=== PATIENT | female | born 1960 | race Caucasian/White ===

== ENCOUNTER 2023-05-01 05:43 | Inpatient (IN) ==
--- NOTE | 2023-03-30 12:12 | PAT Medication Instructions ---
Medication Instructions Date of Service March 30, 2023 Home Medications Medication Instructions Recorded Aspirin (Aspirin EC Low Dose) 81 mg PO BID 30 days ##60 02/17/16 Medication List: BIOTIN 10 mg PO QAM BLACK COHOSH (CIMICIFUGA RACEM (BLACK COHOSH) 40 mg PO BID CYCLOBENZAPRINE HCL (FLEXERIL) 5 mg PO HS DULOXETINE HCL (CYMBALTA) 60 mg PO HS Pantoprazole (Protonix) 40 mg PO DAILYBL Aspirin (Aspirin EC Low Dose) 81 mg PO BID Acetaminophen (Tylenol Extra Strength) 1,000 mg PO Q8 PRN Pain buspirone 5 mg tablet 5 mg PO TID folic acid 1 mg tablet 1 mg PO QAM hydroxychloroquine 200 mg tablet 400 mg PO QAM magnesium 250 mg tablet 250 mg PO QAM methotrexate sodium 2.5 mg tablet 17.5 mg PO WK omega 5-tuy-zop-fish oil 900 mg-1,400 mg capsule,delayed release 1 cap PO HS MEDICATION INSTRUCTIONS: Continue as directed Pantoprazole (Protonix) 40 mg PO DAILYBL ASK your prescriber and surgeon Aspirin (Aspirin EC Low Dose) 81 mg PO BID STOP taking 2 weeks before surgery omega 9-qvz-ihh-fish oil 900 mg-1,400 mg capsule,delayed release 1 cap PO HS BIOTIN 10 mg PO QAM BLACK COHOSH (CIMICIFUGA RACEM (BLACK COHOSH) 40 mg PO BID DO NOT take the morning of surgery folic acid 1 mg tablet 1 mg PO QAM magnesium 250 mg tablet 250 mg PO QAM Take morning of surgery With a small sip of water, OTHERWISE NOTHING TO EAT OR DRINK AFTER MIDNIGHT: buspirone 5 mg tablet 5 mg PO TID hydroxychloroquine 200 mg tablet 400 mg PO QAM Acetaminophen (Tylenol Extra Strength) 1,000 mg PO Q8 PRN Pain (if needed) Take evening before surgery buspirone 5 mg tablet 5 mg PO TID DULOXETINE HCL (CYMBALTA) 60 mg PO HS CYCLOBENZAPRINE HCL (FLEXERIL) 5 mg PO HS Acetaminophen (Tylenol Extra Strength) 1,000 mg PO Q8 PRN Pain (if needed) Other Notes STOP 7 DAYS PRIOR TO SURGERY: methotrexate sodium 2.5 mg tablet 17.5 mg PO WK If you have any questions please call us at [phone] or [phone] or [phone] or [phone]
--- NOTE | 2023-04-13 11:08 | Anesthesiology Consultation ---
Date of Service April 13, 2023 Assessment & Plan (1) Encounter for pre-operative examination: Chart Review Chart Review: Acceptable Risk for Surgery and Patient seen in Pre Admission Testing Per PAT appt on 04/13/23, no recent illness/disease exposures, illness related symptoms, or recent illness/disease positive tests. Will leave to surgeon's discretion if preop Covid testing needed Patient seen by PCP 03/29/23= Patient seen for preop evaluation. "Clinically stable for surgery based on today's exam with caution regarding elevated BP (No preoperative testing available for review today). Revised Cardiac Risk Index for Pre Operative Risk- 0 points. Class I risk. 3.9% 30 day risk of , SD or cardiac arrest." Teaching & Discussion Pre-Anesthesia Teaching/Discussion Notes: Instructed NPO after midnight before surgery,except medications with 15 cc of water. Medication instructions provided according to the PAT guidelines. History Surgery Operation Date: 04/27/23 07:45 Proposed Procedures p L4-5 Decompression Fusion Spinal Cord Monitoring - Franklin Sharpe DO Height/Weight Height: 5 ft Weight: 85.2 kg Allergies Allergy/AdvReac Type Severity Reaction Status Date / Time No Known Allergies Allergy Unverified 03/30/23 11:53 Medications Home Medications Medication Instructions Recorded Confirmed Last Taken BIOTIN 10 mg PO QAM ##0 01/17/16 03/30/23 Unknown BLACK COHOSH (CIMICIFUGA RACEM 40 mg PO BID ##0 01/17/16 03/30/23 Unknown (BLACK COHOSH) CYCLOBENZAPRINE HCL (FLEXERIL) 5 mg PO HS #0 tabs 01/17/16 03/30/23 Unknown DULOXETINE HCL (CYMBALTA) 60 mg PO HS #0 caps 01/17/16 03/30/23 Unknown Pantoprazole (Protonix) 40 mg PO DAILYBL #30 tabs 01/17/16 03/30/23 Unknown Aspirin (Aspirin EC Low Dose) 81 mg PO BID 30 days ##60 02/17/16 03/30/23 Unknown Acetaminophen (Tylenol Extra 1,000 mg PO Q8 PRN Pain 03/30/23 03/30/23 Unknown Strength) buspirone 5 mg tablet 5 mg PO TID 03/30/23 03/30/23 Unknown folic acid 1 mg tablet 1 mg PO QAM 03/30/23 03/30/23 Unknown hydroxychloroquine 200 mg tablet 400 mg PO QAM 03/30/23 03/30/23 Unknown magnesium 250 mg tablet 250 mg PO QAM 03/30/23 03/30/23 Unknown methotrexate sodium 2.5 mg tablet 17.5 mg PO WK 03/30/23 03/30/23 Unknown omega 2-zju-bir-fish oil 900 1 cap PO HS 03/30/23 03/30/23 Unknown mg-1,400 mg capsule,delayed release Past Medical History Medical History Impaired fasting blood sugar Obesity Fibromyalgia Chronic low back pain Osteoarthritis Rheumatoid arthritis on MTX and plaquenil; follows with Rheumatology Hyperlipidemia taking fish oil GERD (gastroesophageal reflux disease) Well controlled and stable Exercise / Class Metabolic Activity III < 4 Walking/Shop/Light housework (one flight of stairs- no chest pain, mild SOB ) Past Surgical History Surgical History History of total right knee replacement History of hemorrhoidectomy Hx of appendectomy Hx of esophagogastroduodenoscopy History of colonoscopy H/O bilateral breast reduction surgery Hx of cholecystectomy Past Anesthesia History No Hx of Anesthesia Complications and No Family Hx of Anesthesia Complications History of PONV No Hx of PONV and No Hx of Motion Sickness Social History Smoking Status: Never smoker Do You Dip or Chew Tobacco: No Hx Alcohol Use: Yes Alcohol type: wine and hard liquor alcohol intake frequency: a few times a month Hx Substance Use: No Review of Systems - Mild chronic DOWLING (chronic, mild and stable)- feels due to deconditioning due to limited activity from back pain - Hx of snoring- hx of sleep study "many years ago"- no EVERETT at that time Patient denies chest pain, shortness of breath, cough, wheezing, palpitations. No hx of seizures, stroke, SD. No hx of blood clots or blood transfusions Physical Exam Vital Signs VITALS BP 162/82 P 69 TEMP 98.2 SP02 95% RESP 16 Constitutional no acute distress ENMT Mouth: no TMJ clicking Thyromental Distance: > or= 3.5 Finger Breadths (3.5) Mallampati Class: II Full dentures on top and bottom Neck + limited neck extension (significant (see 04/13/23 c-spine x ray)) Respiratory normal respiratory effort; no respiratory distress Auscultation: lungs clear to auscultation bilaterally; no wheezes Cardiovascular Rate/Rhythm: regular rate and regular rhythm Heart Sounds: no murmur Vessels: no carotid bruit Musculoskeletal Spine: + pain with cervical ROM Extremities: extremities normal to inspection Psychiatric Orientation: alert Lab Results Anesthesia Preop Results Results Anesthesia Widget: WBC 6.43 K/ul (4.8-10.8) 04/13/23 Hgb 12.0 g/dl (12.0-16.0) 04/13/23 Hct 35.6 % (37.0-47.0) L 04/13/23 Plt 269 K/uL (130-400) 04/13/23 Na 139 mmol/L (136-145) 04/13/23 K 3.7 mmol/L (3.5-5.1) 04/13/23 Cl 106 mmol/L (98-107) 04/13/23 CO2 27 mmol/L (21-32) 04/13/23 BUN 14 mg/dl (6-23) 04/13/23 Creat 0.60 mg/dl (0.6-1.2) 04/13/23 Glucose Level 106 mg/dl (70-99(Fasting)) H 04/13/23 PT 11.0 Seconds (9.0-12.0) 04/13/23 PTT 28 Seconds (21-31) 04/13/23 INR 1.0 (0.9-1.1) 04/13/23 HA1c 6.1 % (4.5-5.6) H 04/13/23 Urine Color Yellow 04/13/23 Urine Appearance Clear (Clear) 04/13/23 Urine pH 5.5 (4.5-7.5) 04/13/23 Urine Specific [place] 1.024 (1.000-1.030) 04/13/23 Urine Protein Negative (Negative) 04/13/23 Urine Glucose (UA) Negative (Negative) 04/13/23 Urine Ketones Negative (Negative) 04/13/23 Urine Blood Negative (Negative) 04/13/23 Urine Nitrite Negative (Negative) 04/13/23 Urine Bilirubin Negative (Negative) 04/13/23 Urine Urobilinogen Negative (Negative) 04/13/23 Urine Leukocyte Esterase Negative (Negative) 04/13/23 Blood Type A Positive 04/13/23 Antibody Screen NEGATIVE 04/13/23 Testing Electrocardiogram Date: 04/13/23 Findings: + NSR @ (76bpm) Normal EKG per cardio Chest X-Ray Date: 04/13/23 Findings: + NAD FINDINGS: PA and lateral chest radiographs are compared to study dated 01/17/2016. The cardiomediastinal silhouette is unremarkable. The lungs and pleural spaces are clear. There is no pneumothorax. The bony thorax appears intact. Cholecystectomy clips are noted in the upper abdomen. Cervical Spine Date: 04/13/23 FINDINGS: The cervical spine is visualized from C1 through the superior endplate of T1. There is straightening of the cervical spine. There is 1 mm of jacki listhesis of C2 on C3. This is likely chronic. Prevertebral soft tissues and the C1-C2 interval are intact. No acute fractures identified. Moderate facet degenerative changes seen throughout the cervical spine. There is moderate disc space narrowing at C5-C6 and C6-C7 with endplate osteophytes. There is mild disc space narrowing at C4-C5. The lung apices are clear. IMPRESSION: 1. No fractures within the cervical spine. 2. There is 1 mm of anterolisthesis of C2 on C3. This is likely due to the long- standing degenerative change. 3. The C1-C2 interval is intact.
[~2023-05-01 05:43] MED LIST: ACETAMINOPHEN 500 MG TAB PO SCH; CeleBREX 200 MG CAP PO SCH; GABAPENTIN 600 MG DOSE PO SCH; LR 15ML/HR IV SCH; LR 60ML/HR IV SCH; ceFAZolin 2000MG 2,000 MG/15 ML SYR IV SCH
[2023-05-01] MEDS ORDERED: ceFAZolin 2000MG 2,000 MG/15 ML SYR IV SCH (06:00)
[2023-05-01] MEDS: GABAPENTIN 600 MG DOSE PO SCH ×5 (06:38→11:40)
[2023-05-01] MEDS: CeleBREX 200 MG CAP PO SCH ×5 (06:38→07:08)
[2023-05-01] MEDS: ACETAMINOPHEN 500 MG TAB PO SCH ×5 (06:38→11:40)
[2023-05-01] MEDS ORDERED: ceFAZolin 2,000 MG/15 ML IV PUSH IV ONE (06:42)
[2023-05-01] MEDS ORDERED: ONDANSETRON INJ 2 MG/ML 2 ML VIAL IV PRN ×2 (06:47→11:31)
[2023-05-01] MEDS ORDERED: PROMETHAZINE HCL 6.25 MG in SODIUM CHLORIDE 0.9% 50 ML IV PRN (06:47)
[2023-05-01] MEDS ORDERED: HYDROmorphone INJ 2 MG/ML SYR/VIAL IV PRN (06:47)
[2023-05-01] MEDS ORDERED: ATROPINE SULFATE 0.1 MG/ML 10ML SYR IV PRN (06:47)
[2023-05-01] MEDS ORDERED: ePHEDrine sulfate 50 MG/ML AMP IV PRN (06:47)
[2023-05-01] MEDS ORDERED: DEXAMETHASONE SOD INJ 4 MG/ML VIAL ONE (06:48)
[2023-05-01] MEDS ORDERED: HYDROmorphone INJ 2 MG/ML SYR/VIAL ONE (06:48)
[2023-05-01] MEDS ORDERED: MIDAZOLAM HCL 1 MG/ML 2ML VIAL ONE (06:48)
[2023-05-01] MEDS ORDERED: GLYCOPYRROLATE 0.2 MG/ML VIAL ONE (06:48)
[2023-05-01] MEDS ORDERED: PROPOFOL IV EMULSION 10 MG/ML 20 ML VIAL IV ONE (06:48)
[2023-05-01] MEDS ORDERED: SODIUM CHLORIDE 0.9% PF INJ 10 ML VIAL ONE (06:48)
[2023-05-01] MEDS ORDERED: LIDOCAINE 2% 2 ML VIAL/AMP(20MG/ML) INFIL ONE (06:48)
[2023-05-01] MEDS ORDERED: ONDANSETRON INJ 2 MG/ML 2 ML VIAL ONE (06:48)
[2023-05-01] MEDS ORDERED: ROCURONIUM BROMIDE 10 MG/ML 5 ML VIAL IV ONE (06:48)
[2023-05-01] MEDS ORDERED: LR 60ML/HR IV SCH (07:00)
[2023-05-01] MEDS ORDERED: LR 15ML/HR IV SCH (07:00)
[2023-05-01] MEDS ORDERED: BUPIVACAINE/EPINEPHRINE 0.5% MPF 1:200,000 30 ML VIAL ONE (07:02)
[2023-05-01] MEDS ORDERED: ceFAZolin 330 MG/ML 1 GM VIAL ONE (07:02)
--- NOTE | 2023-05-01 07:49 | History & Physical Bridge Note ---
Date of Service May 01, 2023 History & Physical Bridge Note I have examined the patient, reviewed the History & Physical and in the interval since the performance of the History & Physical I have noted the following changes of clinical significance: no changes noted
--- NOTE | 2023-05-01 07:50 | History & Physical Report ---
Date of Service May 01, 2023 Assessment & Plan (1) Neurogenic claudication due to lumbar spinal stenosis: Plan: L4-L5 decompression and fusion History of Present Illness Chief Complaint: Back and bilateral leg pain Primary Care Provider: Eyad Youssef MD This is a 62-year-old female who presents with chronic persistent back and leg pain after failing course of nonoperative care is here for surgical invention. Allergies Allergy/AdvReac Type Severity Reaction Status Date / Time No Known Allergies Allergy Verified 05/01/23 06:34 Home Medications Medication Instructions Recorded Confirmed Type BIOTIN 10 mg PO QAM ##0 01/17/16 05/01/23 History BLACK COHOSH (CIMICIFUGA RACEM 40 mg PO BID ##0 01/17/16 05/01/23 History (BLACK COHOSH) CYCLOBENZAPRINE HCL (FLEXERIL) 5 mg PO HS #0 tabs 01/17/16 05/01/23 History DULOXETINE HCL (CYMBALTA) 60 mg PO HS #0 caps 01/17/16 05/01/23 History Pantoprazole (Protonix) 40 mg PO DAILYBL #30 tabs 01/17/16 05/01/23 History Aspirin (Aspirin EC Low Dose) 81 mg PO BID 30 days ##60 02/17/16 05/01/23 Rx Acetaminophen (Tylenol Extra 1,000 mg PO Q8 PRN Pain 03/30/23 05/01/23 History Strength) buspirone 5 mg tablet 5 mg PO TID 03/30/23 05/01/23 History folic acid 1 mg tablet 1 mg PO QAM 03/30/23 05/01/23 History hydroxychloroquine 200 mg tablet 400 mg PO QAM 03/30/23 05/01/23 History magnesium 250 mg tablet 250 mg PO QAM 03/30/23 05/01/23 History methotrexate sodium 2.5 mg tablet 17.5 mg PO WK 03/30/23 05/01/23 History omega 1-ogk-cut-fish oil 900 1 cap PO HS 03/30/23 05/01/23 History mg-1,400 mg capsule,delayed release Past Med/Surg History Medical History Impaired fasting blood sugar Obesity Fibromyalgia Chronic low back pain Osteoarthritis Rheumatoid arthritis on MTX and plaquenil; follows with Rheumatology Hyperlipidemia taking fish oil GERD (gastroesophageal reflux disease) Well controlled and stable Surgical History History of total right knee replacement History of hemorrhoidectomy Hx of appendectomy Hx of esophagogastroduodenoscopy History of colonoscopy H/O bilateral breast reduction surgery Hx of cholecystectomy Social History Smoking Status: Never smoker Second Hand Exposure: No; Do You Dip or Chew Tobacco: No; Tobacco Cessation Education Requested by Patient: No Hx Alcohol Use: Yes Alcohol type: wine and hard liquor Hx Substance Use: No Preferred Language: Croatian Communication Ability: Effective Magnetizer Required: No Beliefs That Will Affect Care: None Current Living Situation: Significant Other Other Information That Helps Us Care for You: No Feels Safe at Home: Yes Safety Concerns: Feels Safe At This Time Assistive Devices: Denture - Upper, Denture - Lower and Glasses Physical Exam Physical Exam: Patient is alert and oriented Heart regular rhythm Lungs clear Results & Data Results & Data Vital Signs (Past 12 Hours) Vital Signs Temp Pulse Resp BP Pulse Ox O2 Del Method 05/01/23 07:17 36.6 C 79 20 138/81 95 Room Air
[2023-05-01] MEDS ORDERED: ePHEDrine sulfate 50 MG/5 ML SYR ONE (08:14)
[2023-05-01] MEDS ORDERED: SUGAMMADEX SODIUM 200 MG/2 ML VIAL IV ONE (08:37)
[2023-05-01] MEDS ORDERED: FLOSEAL HEMOSTATIC MATRIX 10ML TOP ONE (08:54)
[2023-05-01] MEDS ORDERED: PHENYLEPHRINE 100MCG/ML 10ML SYR IV ONE (09:02)
--- NOTE | 2023-05-01 09:41 | Operative Report ---
Post Operative Report Pre & Post Diagnosis Operation Date: 05/01/23 07:45 Pre-Op Diagnosis: neurogenic claudication due to lumbar spinal stenosis Spondylolisthesis L4-L5 Post-Op Diagnosis: Same I identified the patient and participated in the time-out.: Yes Procedure Operation Date: 05/01/23 07:45 Actual Procedures #1 lumbar decompression bilateral medial facetectomies and foraminotomies L3-L4, L4-5. #2 posterior spinal fusion L4-L5 per #3 placed posterior instrumentation L4-5. #4 interbody fusion L4-5 #5 placement spiral 13 x 26 mm at L4-5 per #6 placement locally harvested morselized autograft and posterior gutters. #7 placement of infuse collagen sponge combined with Koros in the posterior lateral gutters and Morpheus in the interbody space. Surgeon Franklin Sharpe, DO Biomedical Engineering Supervisor Susan Hall Estimated Blood Loss 100 Findings See Below The patient is 5 foot tall weighing over 84 kg with a BMI in excess of 36. Patient's body habitus did contribute to significant technical difficulty with positioning exposure and the procedure itself at least 50% increased operative time. Specimens None Indications This is a 62-year-old female who presents above-mentioned diagnosis of failed course of nonoperative care is here for surgical invention. Description of Procedure Patient was met with identified informed consent obtained. Patient was then taken to the operative suite underwent patient placed in a prone position ingestible top the Rosendo frame. All bony prominences well-padded eyes inspected to ensure no external precipice spinal at this point lumbar spine is prepped and draped in a sterile fashion. Sharp dissection with the assistance of Bovie cautery form down to and exposing the lamina transverse processes of L4-L5. From a caudal cephalad fashion complete laminectomy of L4 partial laminectomy of L3 was performed including bilateral medial facetectomies and foraminotomies addressing severe spinal stenosis. Pedicle screws were then placed at L4-5 bilaterally with assistance of fluoroscopy and appropriate size jair placed. By way of transforaminal approach on the left we discectomy of L for L5 was performed endplates guarded to subcortical mean bone and a 13 x 26 mm Spira cage with Morpheus bone graft tapped in position. The rods were then locked in final position bilaterally. The transverse processes of L4-5 burred to subcortical bleeding bone. Infuse collagen sponge combined with Koros and local autograft placed in posterior gutters. 15 round JONNY drain inserted. Incision was then closed with 1 Vicryl to fascia 2-0 Vicryl subcutaneously and 4 Monocryl for final skin closure. Steri-Strips sterile dressing placed. Patient waken taken PACU stable condition. Please note spinal cord monitoring visualized at the procedure no changes noted. Lastly Susan Hall was present for complex portions of the surgery and final skin closure. I attest to the content of the Intraoperative Record and any orders documented therein. Any exceptions are noted below.
--- NOTE | 2023-05-01 09:47 | Fluoroscopy Report ---
FL lumbar spine 2-3V CLINICAL HISTORY: L4-L5 DECOMPRESSION FUSION TECHNIQUE: 2 views were obtained with the C-arm in the OR with the above procedure. Total fluoroscopy time was 16.6 seconds. Radiation dose was 15.83 mGy. Comparison: None available at the time of this dictation. FINDINGS/IMPRESSION: Intraoperative images were obtained of L4-L5 decompression and fusion. Please correlate with intraoperative fluoroscopy and operative report. ACT 112: Negative or not required by law. Electronically signed by: Manan Ku M.D. 05/01/2023 9:46 AM
[2023-05-01] MEDS: fentaNYL citrate PF 100 MCG/2 ML VIAL IV PRN ×2 (10:15→10:20)
[2023-05-01] MEDS ORDERED: HYDROmorphone INJ 0.5 MG/0.5 ML SYR IV PRN (11:31)
[2023-05-01] MEDS ORDERED: DO NOT ADMINISTER FLU VACCINE PRN (11:31)
[2023-05-01] MEDS ORDERED: METOCLOPRAMIDE HCL INJ 5 MG/ML 2 ML VIAL IV PRN (11:31)
[2023-05-01] MEDS ORDERED: LORazepam 0.5 MG in SYRINGE 0.25 ML IV PRN (11:31)
[2023-05-01] MEDS ORDERED: PROMETHAZINE HCL 12.5 MG in SODIUM CHLORIDE 0.9% 50 ML IV PRN (11:31)
[2023-05-01] MEDS ORDERED: SOD PHOSPHATE/SOD BIPHOSPHATE ENEMA 132 ML BTL PR PRN (11:31)
[2023-05-01] MEDS ORDERED: FAMOTIDINE 20 MG TAB PO PRN (11:31)
[2023-05-01] MEDS ORDERED: ONDANSETRON 4 MG OD TAB PO PRN (11:31)
[2023-05-01] MEDS ORDERED: diphenhydrAMINE Capsule 25 MG CAP PO PRN (11:31)
[2023-05-01] MEDS ORDERED: MAGNESIUM HYDROXIDE SUSP 30 ML UDC PO PRN (11:31)
[2023-05-01] MEDS ORDERED: ACETAMINOPHEN 1,000 MG/100 ML VIAL IV PRN (11:31)
[2023-05-01] MEDS ORDERED: HYDROmorphone INJ 1 MG/ML SYRINGE IV PRN (11:31)
[2023-05-01] MEDS ORDERED: DO NOT ADMINISTER PNEUMOCOCCAL VACCINE PRN (11:31)
[2023-05-01] MEDS ORDERED: NALOXONE HCL 0.4 MG/1 ML VIAL/CARP IV PRN (11:31)
[2023-05-01] MEDS ORDERED: oxyCODONE HCL IR 5 MG TAB (IMMEDIATE RELEASE) PO PRN (11:31)
[2023-05-01] MEDS ORDERED: ALUMINUM/MAGNESIUM SUSP 30 ML UDC PO PRN (11:31)
[2023-05-01] MEDS ORDERED: bisacodyL 10 MG SUPP PR PRN (11:31)
[2023-05-01] MEDS ORDERED: hydrOXYzine HCl 25 MG TAB PO PRN (11:31)
[2023-05-01] MEDS ORDERED: LORazepam 0.5 MG TAB PO PRN (11:31)
[2023-05-01] MEDS: LACTATED RINGER'S 1,000 ML IV SCH ×2 (12:20→22:34)
--- NOTE | 2023-05-01 12:40 | Anesthesiology Progress Note ---
Date of Service May 01, 2023 Anesthesia Post Procedure Vital Signs Vital Signs: Temp Pulse Pulse Resp BP BP Pulse Ox 05/01/23 12:31 36.6 C 73 16 118/76 96 05/01/23 12:11 75 18 133/84 96 05/01/23 11:25 05/01/23 11:25 36.5 C 80 14 137/75 94 05/01/23 11:05 80 12 132/68 95 05/01/23 10:50 36.5 C 82 12 134/72 96 05/01/23 10:40 78 12 131/79 95 05/01/23 10:30 74 12 139/74 93 05/01/23 10:20 86 10 L 134/76 97 05/01/23 10:10 78 12 119/73 99 05/01/23 10:00 66 10 L 132/68 99 05/01/23 09:53 36.4 C L 84 8 L 125/60 98 05/01/23 07:17 36.6 C 79 20 138/81 95 O2 Del Method O2 Flow Rate 05/01/23 12:31 Nasal Cannula 3 05/01/23 12:11 Nasal Cannula 2 05/01/23 11:25 Nasal Cannula 3 05/01/23 11:25 Nasal Cannula 3 05/01/23 11:05 Nasal Cannula 3 05/01/23 10:50 Nasal Cannula 3 05/01/23 10:40 Nasal Cannula 4 05/01/23 10:30 Oxymask 5 05/01/23 10:20 Oxymask 8 05/01/23 10:10 Oxymask 8 05/01/23 10:00 Oxymask 8 05/01/23 09:53 Oxymask 8 05/01/23 07:17 Room Air Pain Intensity Back: Pain Intensity: 4 Transfer of Care Handoff Completed per policy Notes Mental Status: alert / awake / arousable and participated in evaluation Patient Amnestic to Procedure: Yes Nausea / Vomiting: adequately controlled Pain: adequately controlled Airway Patency, RR, SpO2: stable & adequate BP & HR: stable & adequate Hydration State: stable & adequate Anesthetic Complications: no major complications apparent and Pt Satisfied with anesthetic care
--- NOTE | 2023-05-01 12:59 | Hospitalist Consultation ---
Date of Consultation May 01, 2023 Assessment & Plan (1) S/P spinal surgery: This is a 62-year-old female with PMH of rheumatoid arthritis, fibromyalgia, anxiety, GERD, HLD and other medical problems listed below who is POD#0 s/p lumbar decompression bilateral medial facetectomies and foraminotomies L3-L4, L4-5 and posterior spinal fusion L4-L5 by Dr. Sharpe. POD#0 s/p lumbar decompression bilateral medial facetectomies and foraminotomies L3-L4, L4-5 and posterior spinal fusion L4-L5 by Dr. Sharpe. Per ortho for pain control, wound care, anticoagulation and activities Monitor H&H (pre-op hgb 12, EBL: 100ml) Continue incentive spirometry, PT/OT when appropriate (2) Rheumatoid arthritis: Follows with rheumatology. Weekly methotrexate held, okay to continue daily Plaquenil (3) Fibromyalgia: Continue duloxetine (4) Hyperlipidemia: Fish oil held postoperatively. Not on a statin. (5) Prediabetes: A1c 6.1 in pre-op testing. Recommend dietary modifications and PCP follow up (6) Anxiety: Resumed home buspirone (7) GERD (gastroesophageal reflux disease): Continue PPI DVT Ppx: SCDs per primary Code status: FULL PCP: Domonique Davila) Dispo: Per primary service Patient seen in collaboration with Dr. Lindo. Please see addendum. Thank you for this consultation. We will follow the patient with you during their hospital stay. You can reach a member of the [facility] Team 30/10 via [employer]. I spent a total of 60 minutes coordinating, documenting, and providing care for this patient excluding time spent in the performance of separately billed services. Supervising Physician Co-Signing Physician Notes Patient seen and examined. Patient is status post L4-5 decompression surgery. Reports no pain at this time. Reports lower extremity numbness. Reports some nausea. Denies vomiting, abdominal pain. Exam, General: No acute distress, obese Eyes: PERRL, conjunctivae normal, not pale, anicteric sclerae, EOM intact bilaterally ENMT: External ear and nose normal, oropharynx normal Respiratory: Normal respiratory effort, no respiratory distress, lungs clear to auscultation, no crackles and no wheezes Cardiovascular: RRR S1 S2 Gastrointestinal (Abdomen): Abdomen is not distended, soft, non-tender to p alpation, no guarding, no palpable hepatosplenomegaly, normal bowel sounds Musculoskeletal: No pedal edema. Clean dressing over surgical site with drain in situ Neurologic: Alert and oriented x 3, No focal weakness Psychiatric: Euthymic affect Check CBC and BMP in AM Resume home buspirone Activity and DVT ppx per surgeon Pain control I spent a total of 35 minutes coordinating, documenting and providing care for this patient excluding time spent in performance of separately billed services History of Present Illness Reason for Consultation: Postop medical management Attending Physician: Franklin Sharpe, History of Present Illness This is a 62-year-old female with PMH of rheumatoid arthritis, fibromyalgia, anxiety, GERD, HLD and other medical problems listed below who is POD#0 s/p lumbar decompression bilateral medial facetectomies and foraminotomies L3-L4, L4-5 and posterior spinal fusion L4-L5 by Dr. Sharpe. Patient is feeling well postoperatively. Endorses radicular symptoms left lower extremity numbness that were present prior to surgery today. Feeling groggy from aftereffects of anesthesia. Endorses some nausea but no vomiting. Denies any fever, chills, lightheadedness, chest pain or shortness of breath, abdominal pain, dysuria, diarrhea or constipation. Receives primary care in [place]. Allergies Allergy/AdvReac Type Severity Reaction Status Date / Time No Known Allergies Allergy Verified 05/01/23 06:34 Home Medications Medication Instructions Recorded Confirmed Type BIOTIN 10 mg PO QAM ##0 01/17/16 05/01/23 History BLACK COHOSH (CIMICIFUGA RACEM 40 mg PO BID ##0 01/17/16 05/01/23 History (BLACK COHOSH) CYCLOBENZAPRINE HCL (FLEXERIL) 5 mg PO HS #0 tabs 01/17/16 05/01/23 History DULOXETINE HCL (CYMBALTA) 60 mg PO HS #0 caps 01/17/16 05/01/23 History Pantoprazole (Protonix) 40 mg PO DAILYBL #30 tabs 01/17/16 05/01/23 History Aspirin (Aspirin EC Low Dose) 81 mg PO BID 30 days ##60 02/17/16 05/01/23 Rx Acetaminophen (Tylenol Extra 1,000 mg PO Q8 PRN Pain 03/30/23 05/01/23 History Strength) buspirone 5 mg tablet 5 mg PO TID 03/30/23 05/01/23 History folic acid 1 mg tablet 1 mg PO QAM 03/30/23 05/01/23 History hydroxychloroquine 200 mg tablet 400 mg PO QAM 03/30/23 05/01/23 History magnesium 250 mg tablet 250 mg PO QAM 03/30/23 05/01/23 History methotrexate sodium 2.5 mg tablet 17.5 mg PO WK 03/30/23 05/01/23 History omega 2-rdt-lpv-fish oil 900 1 cap PO HS 03/30/23 05/01/23 History mg-1,400 mg capsule,delayed release oxycodone 5 mg tablet 5 mg PO Q6H PRN pain #30 tabs 05/01/23 Rx tramadol 50 mg tablet 50 mg PO Q6H PRN pain, moderate 05/01/23 Rx #30 tabs Patient History Medical History (Updated 05/01/23 @ 14:36 by Itzel Morrison PA-C) Anxiety Prediabetes Impaired fasting blood sugar Obesity Fibromyalgia Chronic low back pain Osteoarthritis Rheumatoid arthritis on MTX and plaquenil; follows with Rheumatology Hyperlipidemia taking fish oil GERD (gastroesophageal reflux disease) Well controlled and stable Surgical History History of total right knee replacement History of hemorrhoidectomy Hx of appendectomy Hx of esophagogastroduodenoscopy History of colonoscopy H/O bilateral breast reduction surgery Hx of cholecystectomy Family History Other Diabetes Hypertension Social History Smoking Status: Never smoker Second Hand Exposure: No; Do You Dip or Chew Tobacco: No; Tobacco Cessation Education Requested by Patient: No Hx Alcohol Use: Yes Alcohol type: wine and hard liquor Alcohol Intake Frequency: Monthly or Less Hx Substance Use: No Preferred Language: Hebrew Communication Ability: Effective Radio Commentator Required: No Beliefs That Will Affect Care: None Current Living Situation: Significant Other Other Information That Helps Us Care for You: No Feels Safe at Home: Yes Safety Concerns: Feels Safe At This Time Assistive Devices: Denture - Upper, Denture - Lower and Glasses Review of Systems Review of Systems: At least ten systems reviewed and negative except as noted in the HPI. Physical Exam Physical Exam: Please see Dr. Lindo's addendum for physical exam. Results & Data Results & Data Vital Signs (Past 12 Hours) Vital Signs Temp Pulse Pulse Resp BP BP Pulse Ox 05/01/23 12:31 36.6 C 73 16 118/76 96 05/01/23 12:11 75 18 133/84 96 05/01/23 11:25 05/01/23 11:25 36.5 C 80 14 137/75 94 05/01/23 11:05 80 12 132/68 95 05/01/23 10:50 36.5 C 82 12 134/72 96 05/01/23 10:40 78 12 131/79 95 05/01/23 10:30 74 12 139/74 93 05/01/23 10:20 86 10 L 134/76 97 05/01/23 10:10 78 12 119/73 99 05/01/23 10:00 66 10 L 132/68 99 05/01/23 09:53 36.4 C L 84 8 L 125/60 98 05/01/23 07:17 36.6 C 79 20 138/81 95 O2 Del Method O2 Flow Rate 05/01/23 12:31 Nasal Cannula 3 05/01/23 12:11 Nasal Cannula 2 05/01/23 11:25 Nasal Cannula 3 05/01/23 11:25 Nasal Cannula 3 05/01/23 11:05 Nasal Cannula 3 05/01/23 10:50 Nasal Cannula 3 05/01/23 10:40 Nasal Cannula 4 05/01/23 10:30 Oxymask 5 05/01/23 10:20 Oxymask 8 05/01/23 10:10 Oxymask 8 05/01/23 10:00 Oxymask 8 05/01/23 09:53 Oxymask 8 05/01/23 07:17 Room Air
[2023-05-01] MEDS: PANTOprazole 40 MG TAB PO SCH (13:22)
[2023-05-01] MEDS: busPIRone 5 MG TAB PO SCH ×2 (14:49→21:05)
[2023-05-01] MEDS: ceFAZolin 2000MG 2,000 MG/15 ML SYR IV SCH (16:05)
[2023-05-01] MEDS: DOCUSATE SODIUM/SENNA 50/8.6MG TAB PO SCH (21:04)
[2023-05-01] MEDS: ASPIRIN 81 MG ECTAB PO SCH (21:04)
[2023-05-01] MEDS: DULoxetine HCL 60 MG CAP PO SCH (21:05)
[2023-05-01] MEDS: traMADol HCL 50 MG TABLET PO PRN (21:10)
[2023-05-02] MEDS: ceFAZolin 2000MG 2,000 MG/15 ML SYR IV SCH
[2023-05-02] MEDS: POLYETHYLENE (MIRALAX) 17 GM PACK PO SCH ×3 (05:08→17:05)
[2023-05-02] MEDS: CeleBREX 200 MG CAP PO SCH (05:09)
[2023-05-02] MEDS: ACETAMINOPHEN 500 MG TAB PO SCH (05:10)
[2023-05-02] MEDS: GABAPENTIN 600 MG DOSE PO SCH (05:10)
[2023-05-02 06:44] LABS: Basophils # (auto) 0.01 K/uL (0.00-0.20); Basophils % (auto) 0.1 %; Hematocrit (blood only) 30.2 % (37.0-47.0); Hemoglobin 10.2 g/dl (12.0-16.0); Immature Granulocytes # (auto) 0.07 K/uL (0.01-0.20); Immature Granulocytes % (auto) 0.6 %; Lymphocytes # (auto) 1.61 K/uL (1.20-3.40); Lymphocytes % (auto) 14.6 %; Mean Corpuscular Hemoglobin 28.6 pg (25.0-34.0); Mean Corpuscular Hgb Conc 33.8 g/dL (32.0-36.0); Mean Corpuscular Volume 84.6 fL (80.0-100.0); Mean Platelet Volume 11.6 fL (9.4-12.4); Monocytes # (auto) 0.68 K/uL (0.11-0.59); Monocytes % (auto) 6.2 %; Neutrophils # (auto) 8.68 K/uL (1.40-6.50); Neutrophils % (auto) 78.5 %; Platelet Count 244 K/uL (130-400); RDW Coefficient of Variation 13.2 % (11.5-14.5); Red Blood Count 3.57 M/uL (4.20-5.40); White Blood Count 11.05 K/ul (4.8-10.8)
[2023-05-02 07:05] LABS: Potassium 3.8 mmol/L (3.5-5.1)
[2023-05-02 07:10] LABS: BUN Creatinine Ratio 18.5 (10-20); Creatinine Clr Calc Pharmacy 87.6 ml/min; Est GFR (African American) 111.1 ml/min; Est GFR (Non-African American) 95.8 ml/min
[2023-05-02] MEDS: HYDROXYCHLOROQUINE SULFATE 200 MG TAB PO SCH (08:24)
[2023-05-02] MEDS: dexAMETHasone 6 MG in SYRINGE 0 ML IV SCH (08:24)
[2023-05-02] MEDS: FOLIC ACID 1 MG TAB PO SCH (08:25)
[2023-05-02] MEDS: busPIRone 5 MG TAB PO SCH ×3 (08:25→20:15)
[2023-05-02] MEDS: ASPIRIN 81 MG ECTAB PO SCH ×2 (08:25→20:15)
[2023-05-02] MEDS: LACTATED RINGER'S 1,000 ML IV SCH (08:26)
[2023-05-02] MEDS: MAGNESIUM OXIDE 400 MG TAB PO SCH (08:26)
[2023-05-02] MEDS ORDERED: BIOTIN 5 MG PO SCH (09:00)
[2023-05-02] MEDS: PANTOprazole 40 MG TAB PO SCH (10:48)
--- NOTE | 2023-05-02 11:49 | Hospitalist Progress Note ---
Date of Service May 02, 2023 Assessment & Plan (1) S/P spinal surgery: Plan: This is a 62-year-old female with PMH of rheumatoid arthritis, fibromyalgia, anxiety, GERD, HLD and other medical problems listed below who is POD#1 s/p lumbar decompression bilateral medial facetectomies and foraminotomies L3-L4, L4-5 and posterior spinal fusion L4-L5 by Dr. Sharpe. POD#1 s/p lumbar decompression bilateral medial facetectomies and foraminotomies L3-L4, L4-5 and posterior spinal fusion L4-L5 by Dr. Sharpe. Per ortho for pain control, wound care, anticoagulation and activities Monitor H&H (pre-op hgb 12, EBL: 100ml) Continue incentive spirometry, PT/OT when appropriate (2) Acute postoperative anemia due to expected blood loss: Plan: Preop hemoglobin 12, postop hemoglobin 10.2 Expected blood loss, likely dilutional component No indication for transfusion, monitor (3) Rheumatoid arthritis: Plan: Follows with rheumatology. Weekly methotrexate held, okay to continue daily Plaquenil (4) Fibromyalgia: Plan: Continue duloxetine (5) Hyperlipidemia: Plan: Fish oil held postoperatively. Not on a statin. (6) Prediabetes: Plan: A1c 6.1 in pre-op testing. Recommend dietary modifications and PCP follow up (7) Anxiety: Plan: Resumed home buspirone (8) GERD (gastroesophageal reflux disease): Plan: Continue PPI DVT Ppx: SCDs per primary Code status: FULL PCP: Domonique Davila) Dispo: Per primary service Patient seen in collaboration with Dr. Corrigan. Please see addendum. Thank you for this consultation. We will follow the patient with you during their hospital stay. You [facility] via [employer]. I spent a total of 42 minutes coordinating, documenting, and providing care for this patient excluding time spent in the performance of separately billed services. Admission and Anticipated Discharge Date Admission Date: May 01, 2023 Supervising Physician Co-Signing Physician Notes Patient was seen and examined at bedside. Patient is a status post lumbar spine surgery. Patient reports improvement in her BLE radicular symptoms. Reports moving bowel and tolerating diet. On exam, low back with clean dressing without soakage. JONNY drain with moderate serosanguineous collection noted. I have seen and examined the patient and have discussed the case with the provider above. I agree with the assessment and plan as stated. Subjective Patient was seen and examined in room 318 Follow-up lumbar surgery. She is doing well postoperatively on day 1. She offers no acute concerns. She has some incisional tenderness but otherwise denies any radicular symptoms. She denies fever, chills, sweats, lightheadedness, dizziness, chest pain, shortness of breath, nausea, and abdominal pain. She is tolerating diet. Review of Systems Review of Systems: All systems reviewed & are unremarkable except as noted in HPI & below Physical Exam Physical Exam: Gen: WD/WN, NAD, A&O x3 HEENT: Normocephalic, atraumatic, conjunctivae moist, sclerae anicteric, mucous membranes moist. Lung: Clear to Auscultation bilaterally, no wheezes/rales/rhonchi Heart: Regular rate, regular rhythm, no murmurs, rubs, or gallops Abdomen: Soft, NT, ND +BS x 4 Extremities: No edema, lumbar dressing CDI, JONNY drain with serosanguineous drainage Skin: Warm, no rash, negative turgor. Results & Data Results & Data Vital Signs (Past 12 Hours) Vital Signs Temp Pulse Resp BP Pulse Ox O2 Del Method 05/02/23 11:15 36.4 C L 77 16 126/77 95 Room Air 05/02/23 07:22 36.8 C 92 H 18 121/70 93 Room Air 05/02/23 03:00 36.8 C 85 16 125/77 90 Room Air Laboratory Results Short CBC 05/02/23 Range/Units 05:38 WBC 11.05 H (4.8-10.8) K/ul Hgb 10.2 L (12.0-16.0) g/dl Hct 30.2 L (37.0-47.0) % Plt Count 244 (130-400) K/uL BMP 05/02/23 05:38 Sodium 141 Potassium 3.8 Chloride 107 Carbon Dioxide 27 BUN 12 Creatinine 0.65 Glucose 152 H Calcium 9.0 I personally reviewed and independently interpreted patient's CBC and BMP. Medications Administered Current Inpatient Medications Acetaminophen (Acetaminophen 500 Mg Tab) 1,000 mg PO PREOP MENA Stop: 05/27/23 05:59 Last Admin: 05/02/23 05:10 Dose: Not Given Acetaminophen (Acetaminophen 500 Mg Tab) 1,000 mg PO Q8H PRN PRN Reason: MILD Pain Scale 1,2,3 & Pre PT Stop: 05/31/23 11:30 Al Hydrox/Mg Hydrox/Simethicone (Aluminum/Magnesium Susp 30 Ml Udc) 30 ml PO Q6H PRN PRN Reason: Dyspepsia Stop: 05/31/23 11:30 Aspirin (Aspirin 81 Mg Ectab) 81 mg PO BID [facility] Stop: 05/31/23 20:59 Last Admin: 05/02/23 08:25 Dose: 81 mg Bisacodyl (Bisacodyl 10 Mg Supp) 10 mg RI DAILY PRN PRN Reason: Constipation Stop: 05/31/23 11:30 Buspirone HCl (Buspirone 5 Mg Tab) 5 mg PO TID [facility] Stop: 05/31/23 13:59 Last Admin: 05/02/23 08:25 Dose: 5 mg Celecoxib (Celebrex 200 Mg Cap) 200 mg PO PREOP MENA Stop: 05/27/23 05:59 Last Admin: 05/02/23 05:09 Dose: 200 mg Diphenhydramine HCl (Diphenhydramine Capsule 25 Mg Cap) 25 mg PO Q6H PRN PRN Reason: Allergic Rhinitis/Insomnia Stop: 05/31/23 11:30 Duloxetine HCl (Duloxetine Hcl 60 Mg Cap) 60 mg PO HS [facility] Stop: 05/31/23 20:59 Last Admin: 05/01/23 21:05 Dose: 60 mg Famotidine (Famotidine 20 Mg Tab) 20 mg PO Q12H PRN PRN Reason: Dyspepsia Stop: 05/31/23 11:30 Folic Acid (Folic Acid 1 Mg Tab) 1 mg PO QAM [facility] Stop: 06/01/23 08:59 Last Admin: 05/02/23 08:25 Dose: 1 mg Gabapentin (Gabapentin 600 Mg Dose) 600 mg PO PREOP MENA Stop: 05/27/23 05:59 Last Admin: 05/02/23 05:10 Dose: 600 mg Hydromorphone HCl (Hydromorphone Inj 0.5 Mg/0.5 Ml Syr) 0.5 mg IV Q3H PRN PRN Reason: MODERATE Pain (Scale 4,5,6) & Stop: 05/15/23 11:30 Hydromorphone HCl (Hydromorphone Inj 1 Mg/Ml Syringe) 1 mg IV Q3H PRN PRN Reason: SEVERE Pain (Scale 7,8,9,10) Stop: 05/15/23 11:30 Hydroxychloroquine Sulfate (Hydroxychloroquine Sulfate 200 Mg Tab) 400 mg PO QAM [facility] Stop: 06/01/23 08:59 Last Admin: 05/02/23 08:24 Dose: 400 mg Hydroxyzine HCl (Hydroxyzine Hcl 25 Mg Tab) 25 mg PO Q8H PRN PRN Reason: Anxiety Stop: 05/31/23 11:30 Lactated Ringer's (Lr) 1,000 mls @ 100 mls/hr IV .Q10H MENA Stop: 05/31/23 11:30 Last Admin: 05/02/23 08:26 Dose: Not Given Promethazine HCl 12.5 mg/ (Sodium Chloride) 50.5 mls @ 202 mls/hr IV Q6H PRN PRN Reason: Nausea &/or Vomiting Stop: 05/31/23 11:30 Lorazepam 0.5 mg/ Syringe 0.5 mls @ 2 mls/min IV Q8H PRN; Protocol PRN Reason: Sedation/Anxiety Stop: 05/31/23 11:30 Dexamethasone 6 mg/ Syringe 1.5 mls @ 1 mls/min IV DAILY [facility] Stop: 05/04/23 09:02 Last Admin: 05/02/23 08:24 Dose: 1 mls/min Influenza Virus Vaccine Quadrival (Do Not Administer Flu Vaccine) 1 each N/A PRN PRN PRN Reason: Notification Stop: 05/31/23 11:30 Lorazepam (Lorazepam 0.5 Mg Tab) 0.5 mg PO Q8H PRN PRN Reason: Sedation/Anxiety Stop: 05/31/23 11:30 Magnesium Hydroxide (Magnesium Hydroxide Susp 30 Ml Udc) 30 ml PO Q24H PRN PRN Reason: Constipation Stop: 05/31/23 11:30 Magnesium Oxide (Magnesium Oxide 400 Mg Tab) 400 mg PO QAM MENA Stop: 06/01/23 08:59 Last Admin: 05/02/23 08:26 Dose: 400 mg Metoclopramide HCl (Metoclopramide Hcl Inj 5 Mg/Ml 2 Ml Vial) 10 mg IV Q6H PRN PRN Reason: Nausea &/or Vomiting Stop: 05/31/23 11:30 Last Admin: 05/01/23 12:14 Dose: 10 mg Naloxone HCl (Naloxone Hcl 0.4 Mg/1 Ml Vial/Carp) 0.1 mg IV Q5M PRN PRN Reason: Oversedation/Resp depression Stop: 05/31/23 11:30 Ondansetron HCl (Ondansetron Inj 2 Mg/Ml 2 Ml Vial) 4 mg IV Q6H PRN PRN Reason: Nausea &/or Vomiting Stop: 05/31/23 11:30 Ondansetron HCl (Ondansetron 4 Mg Od Tab) 4 mg PO Q6H PRN PRN Reason: Nausea Stop: 05/31/23 11:30 Last Admin: 05/01/23 15:44 Dose: 4 mg Oxycodone HCl (Oxycodone Hcl Ir 5 Mg Tab (Immediate Release)) 5 - 10 mg PO Q4H PRN PRN Reason: Pain & Pre PT Stop: 05/15/23 11:30 Pantoprazole Sodium (Pantoprazole 40 Mg Tab) 40 mg PO DAILYBL MENA; Protocol Stop: 05/31/23 11:59 Last Admin: 05/02/23 10:48 Dose: 40 mg Pneumococcal Polyvalent Vaccine (Do Not Administer Pneumococcal Vaccine) 1 each N/A PRN PRN PRN Reason: Notification Stop: 05/31/23 11:30 Polyethylene Glycol (Polyethylene (Miralax) 17 Gm Pack) 17 gm PO Q6 MENA Stop: 06/01/23 05:59 Last Admin: 05/02/23 05:08 Dose: 17 gm Senna/Docusate Sodium (Docusate Sodium/Senna 50/8.6mg Tab) 2 tab PO HS MENA Stop: 05/31/23 20:59 Last Admin: 05/01/23 21:04 Dose: 2 tab Sodium Biphosphate/Sodium Phosphate (Sod Phosphate/Sod Biphosphate Enema 132 Ml Btl) 132 ml RI ONE PRN PRN Reason: Constipation Stop: 05/31/23 11:30 Tramadol HCl (Tramadol Hcl 50 Mg Tablet) 50 - 100 mg PO Q4H PRN PRN Reason: Moderate-Severe pain & Pre PT Stop: 05/31/23 11:30 Last Admin: 05/01/23 21:10 Dose: 100 mg
--- NOTE | 2023-05-02 13:12 | Orthopedic Progress Note ---
Date of Service May 02, 2023 Assessment & Plan (1) Neurogenic claudication due to lumbar spinal stenosis: Plan: At this time we will continue physical therapy monitor JONNY output anticipate discharge home in the next few days. Admission and Anticipated Discharge Date Admission Date: May 01, 2023 Subjective Patient's back pain is controlled leg pain markedly improved Physical Exam Physical Exam: Patient is in the chair at the bedside. She is comfortable. Is good strength testing. Results & Data Vital Signs (Past 12 Hours) Vital Signs Temp Pulse Resp BP Pulse Ox O2 Del Method 05/02/23 11:15 36.4 C L 77 16 126/77 95 Room Air 05/02/23 07:22 36.8 C 92 H 18 121/70 93 Room Air 05/02/23 03:00 36.8 C 85 16 125/77 90 Room Air Queries Orthopedic Spine Obesity: Yes
[2023-05-02] MEDS: DOCUSATE SODIUM/SENNA 50/8.6MG TAB PO SCH (20:14)
[2023-05-02] MEDS: DULoxetine HCL 60 MG CAP PO SCH (20:15)
[2023-05-02] MEDS: traMADol HCL 50 MG TABLET PO PRN (20:15)
[2023-05-03] MEDS: POLYETHYLENE (MIRALAX) 17 GM PACK PO SCH ×3 (00:17→11:25)
[2023-05-03] MEDS: GABAPENTIN 600 MG DOSE PO SCH (05:17)
[2023-05-03] MEDS: ACETAMINOPHEN 500 MG TAB PO SCH (05:18)
[2023-05-03] MEDS: CeleBREX 200 MG CAP PO SCH (05:18)
[2023-05-03 07:32] LABS: Hematocrit (blood only) 31.8 % (37.0-47.0); Hemoglobin 10.2 g/dl (12.0-16.0); Mean Corpuscular Hemoglobin 28.1 pg (25.0-34.0); Mean Corpuscular Hgb Conc 32.1 g/dL (32.0-36.0); Mean Corpuscular Volume 87.6 fL (80.0-100.0); Mean Platelet Volume 11.6 fL (9.4-12.4); Platelet Count 245 K/uL (130-400); RDW Coefficient of Variation 13.3 % (11.5-14.5); RDW Standard Deviation 42.5 fL (36.4-46.3); Red Blood Count 3.63 M/uL (4.20-5.40); White Blood Count 10.41 K/ul (4.8-10.8)
--- NOTE | 2023-05-03 08:22 | Orthopedic Progress Note ---
Date of Service May 03, 2023 Assessment & Plan (1) Neurogenic claudication due to lumbar spinal stenosis: Plan: This time continue physical therapy monitor JONNY output anticipate discharge home tomorrow. Admission and Anticipated Discharge Date Admission Date: May 01, 2023 Subjective Back pain controlled leg pain improved Physical Exam Physical Exam: Patient is in bed. She is comfortable. Is good strength testing. Results & Data Vital Signs (Past 12 Hours) Vital Signs Temp Pulse Resp BP Pulse Ox O2 Del Method 05/03/23 08:16 36.9 C 76 18 123/79 95 Room Air 05/02/23 22:10 36.4 C L 86 18 106/61 93 Room Air Queries Orthopedic Spine Obesity: Yes
[2023-05-03] MEDS: dexAMETHasone 6 MG in SYRINGE 0 ML IV SCH (08:51)
[2023-05-03] MEDS: PANTOprazole 40 MG TAB PO SCH (08:52)
[2023-05-03] MEDS: HYDROXYCHLOROQUINE SULFATE 200 MG TAB PO SCH (08:52)
[2023-05-03] MEDS: ASPIRIN 81 MG ECTAB PO SCH ×2 (08:52→20:01)
[2023-05-03] MEDS: FOLIC ACID 1 MG TAB PO SCH (08:53)
[2023-05-03] MEDS: busPIRone 5 MG TAB PO SCH ×3 (08:53→20:02)
[2023-05-03] MEDS: ACETAMINOPHEN 500 MG TAB PO PRN (08:53)
[2023-05-03] MEDS: MAGNESIUM OXIDE 400 MG TAB PO SCH (08:53)
--- NOTE | 2023-05-03 16:23 | Hospitalist Progress Note ---
Date of Service May 03, 2023 Assessment & Plan (1) S/P spinal surgery: Plan: This is a 62-year-old female with PMH of rheumatoid arthritis, fibromyalgia, anxiety, GERD, HLD and other medical problems listed below who is POD#1 s/p lumbar decompression bilateral medial facetectomies and foraminotomies L3-L4, L4-5 and posterior spinal fusion L4-L5 by Dr. Sharpe. POD#2 s/p lumbar decompression bilateral medial facetectomies and foraminotomies L3-L4, L4-5 and posterior spinal fusion L4-L5 by Dr. Sharpe. Per ortho for pain control, wound care, anticoagulation and activities Monitor H&H (pre-op hgb 12, EBL: 100ml) Continue incentive spirometry, PT/OT when appropriate (2) Acute postoperative anemia due to expected blood loss: Plan: Preop hemoglobin 12, postop hemoglobin 10.2 Expected blood loss, likely dilutional component No indication for transfusion, monitor (3) Rheumatoid arthritis: Plan: Follows with rheumatology. Weekly methotrexate held, okay to continue daily Plaquenil (4) Fibromyalgia: Plan: Continue duloxetine (5) Hyperlipidemia: Plan: Fish oil held postoperatively. Not on a statin. (6) Prediabetes: Plan: A1c 6.1 in pre-op testing. Recommend dietary modifications and PCP follow up (7) Anxiety: Plan: Resumed home buspirone (8) GERD (gastroesophageal reflux disease): Plan: Continue PPI DVT Ppx: SCDs per primary Code status: FULL PCP: Domonique Davila) Dispo: Per primary service Thank you for this consultation. We will follow the patient with you during their hospital stay. You can reach a [facility] via [employer]. Admission and Anticipated Discharge Date Admission Date: May 01, 2023 Subjective Patient was seen and examined in room 318 Follow-up lumbar surgery. She is doing well postoperatively on day 2. She offers no acute concerns. She has some incisional tenderness but otherwise denies any radicular symptoms. She denies fever, chills, sweats, lightheadedness, dizziness, chest pain, shortness of breath, nausea, and abdominal pain. She is tolerating diet. Has moved very small BM yesterday per her. Physical Exam Physical Exam: Gen: WD/WN, NAD, A&O x3 HEENT: Normocephalic, atraumatic, conjunctivae moist, sclerae anicteric, mucous membranes moist. Lung: Clear to Auscultation bilaterally, no wheezes/rales/rhonchi Heart: Regular rate, regular rhythm, no murmurs, rubs, or gallops Abdomen: Soft, NT, ND +BS x 4 Extremities: No edema, lumbar dressing CDI, JONNY drain with serosanguineous drainage Skin: Warm, no rash, negative turgor. Results & Data Results & Data Vital Signs (Past 12 Hours) Vital Signs Temp Pulse Resp BP Pulse Ox O2 Del Method 05/03/23 14:51 36.7 C 76 16 137/81 94 Room Air 05/03/23 08:16 36.9 C 76 18 123/79 95 Room Air
[2023-05-03] MEDS: DULoxetine HCL 60 MG CAP PO SCH (20:01)
[2023-05-03] MEDS: DOCUSATE SODIUM/SENNA 50/8.6MG TAB PO SCH (20:02)
[2023-05-04] MEDS: traMADol HCL 50 MG TABLET PO PRN ×2 (00:34→10:31)
[2023-05-04] MEDS: ACETAMINOPHEN 500 MG TAB PO SCH (04:44)
[2023-05-04] MEDS: GABAPENTIN 600 MG DOSE PO SCH (04:59)
[2023-05-04] MEDS: CeleBREX 200 MG CAP PO SCH (04:59)
[2023-05-04] MEDS: busPIRone 5 MG TAB PO SCH (08:12)
[2023-05-04] MEDS: FOLIC ACID 1 MG TAB PO SCH (08:12)
[2023-05-04] MEDS: MAGNESIUM OXIDE 400 MG TAB PO SCH (08:12)
[2023-05-04] MEDS: ASPIRIN 81 MG ECTAB PO SCH (08:13)
[2023-05-04] MEDS: HYDROXYCHLOROQUINE SULFATE 200 MG TAB PO SCH (08:13)
[2023-05-04] MEDS: dexAMETHasone 6 MG in SYRINGE 0 ML IV SCH (08:13)
[2023-05-04] MEDS: ACETAMINOPHEN 500 MG TAB PO PRN (08:16)
--- NOTE | 2023-05-04 09:34 | Discharge Summary ---
Date of Service May 04, 2023 Admission HPI Per Admitting Provider This is a 62-year-old female who presents with chronic persistent back and leg pain after failing course of nonoperative care is here for surgical invention. Principal Diagnosis Lumbar spinal stenosis with spondylolisthesis and neurogenic claudication Discharge Data Allergies Allergy/AdvReac Type Severity Reaction Status Date / Time No Known Allergies Allergy Verified 05/01/23 06:34 Consultations 05/01/23 11:31 Consult Hospitalist Routine Procedures Performed Operation Date: 05/01/23 07:45 Actual Procedures p L4-5 Decompression Fusion, Spinal Cord Monitoring(Not Applicable) - Franklin Sharpe DO Ordered Studies 05/01/23 07:45 [place] lumbar spine 2-3V Routine Hospital Course (1) Neurogenic claudication due to lumbar spinal stenosis: Patient with lumbar decompression fusion tolerated this well was taken to orthopedic floor postoperatively. Postoperatively she was up and ambulating appropriately. Strength testing. JONNY drain decreasing appropriately. Subsequent discharge home. Discharge orders and instructions on chart for further review. Total Time Total Time Spent Total Time Spent (In Minutes): 20 minutes Discharge Plan Discharge Items Patient Disposition: Home - Self-Care Reason For Visit: Spinal Stenosis Lumbar Region Neurogenic Claudicat Discharge Diagnosis: Lumbar spinal stenosis with neurogenic claudication Activity: As commented below Non-emergency contact: Primary Care Provider Call non-emergency contact if: you have any medication questions Follow-up/Referrals: Temo Plascencia [Non-Staff] - Diet: Regular Addtl Attending Provider Instructions: ACTIVITY RECOMMENDATIONS: SELF CARE INSTRUCTIONS AFTER THORACIC/LUMBAR FUSIONS 1. You may walk to your tolerance. It is good exercise for your legs and back. Expect some back and intermittent leg aches and pains. 2. You may perform "counter-top" level activities (make a sandwich, zach with a project, etc.). 3. No bending or lifting of more than 10 pounds or back twisting of any nature (roll like a log when turning in bed). 4. You may ride in a car for 20-30 minutes at a time. No driving until after your first visit with your doctor. 5. Frequent changes of position and restricting sitting to 30 minutes at a time will help limit the amount of back spasms and stiffness you may experience. 6. You may discontinue the use of ambulatory aids (cane, crutches, etc.) once your strength and confidence allow. 7. You may state inspector the shower and let water strike your incision when you arrive home at least once daily. Do not take a tub bath, sit in a hot tub or go into a swimming pool until after your first recheck in the office. SPECIAL CARE INSTRUCTIONS: VERY IMPORTANT TO READ AND REVIEW A. Your surgical incision has been closed with a cosmetic suture under the skin that will dissolve in about 6 weeks. In 14 days, you can use a pair of clean scissors and cut the suture that is left outside of the skin at the ends of your incision. 1. The small skin tapes can be removed 7 days after surgery if they have not fallen off by that point. 2. You may keep the wound open to air as much as possible to promote healing after post-op day number 5 unless told otherwise by your doctor. 3. If you think the wound looks like it is becoming infected (redness or worsening drainage) and/or you are experiencing fever, chill or worsening back pain and muscle spasms, contact the office so that we may evaluate you as soon as possible. B. Complications are uncommon, but please contact us if you have any signs or symptoms of: 1. wound infection (fever higher than 102.5 degrees F, redness, separation of wound, drainage, or increasing pain from the incision) 2. blood clots in legs (pain, swelling, redness and warmth in legs) 3. urinary tract infection (fever higher than 102.5 degrees F, burning upon urination or increased frequency of urination) 4. nerve problems (inability to walk on your toes or heels, numbness, loss of bowel or bladder control) 5. any other symptoms that concern you C. Please call the office at if you have any concerns or questions about your operation or recovery. D. No smoking! Smoking drastically decreases the chance of a solid fusion. E. Do not take any anti-inflammatory medications (Indocin, Advil, Motrin, Aspirin, Naprosyn, etc.) as these may inhibit the chance of a solid fusion. Tylenol is okay to take for pain. MANAGING PAIN AFTER SPINAL SURGERY 1. Narcotic medication is intended for short-term use and will be provided for surgical pain. Surgical pain usually lasts for a period of 4-6 weeks. Narcotic medication includes Percocet, Vicodin, Darvocet, Tylenol #3 or Lortab. 2. Longer-term pain is more appropriately treated with non-narcotic medication such as Tylenol ES. 3. Muscle spasm is not appropriately treated with narcotics. Muscle relaxers such as Soma, Flexeril or Skelaxin can be used along with Tylenol ES. 4. Remember that we all live with some "aches and pains". This is not unusual or uncommon after an injury or as we get older. a. Back pain is expected and may include muscle spasms for 4 to 6 weeks after surgery. The pain should gradually improve. If the pain worsens for no apparent reason, please contact the office. b. Intermittent leg pain may also be experienced and should not be concerned about unless it worsens for no apparent reason. If so, please contact the office. 5. We will provide appropriate medication within the normal guidelines of their prescribed use. We will also be very cautious and aware of potential abuse and extended duration of patients' medication needs. a. Pain medications are for your comfort and to assist with sleep and rest so that the tissue can heal. They are not provided in order to return to normal activity and should not be used through the day. To do so or worsening pain at night can result from ongoing tissue damage and development of tolerance to the prescribed medicine. 6. Please allow 2-3 days to process refills. Prescriptions will not be mailed but must be picked up at the office. FOLLOW UP VISIT: Keep your scheduled follow-up appointment. Any questions, please call the office at . Pending Studies at Discharge: No Stand-Alone Forms: My [facility] Airseed, Smoking Cessation Medications and DC Order Prescriptions: New tramadol 50 mg tablet 50 mg PO Q6H PRN (Reason: pain, moderate) Qty: 30 0RF oxycodone 5 mg tablet 5 mg PO Q6H PRN (Reason: pain) Qty: 30 0RF Continued BIOTIN 5 MG tablet 10 mg PO QAM Qty: 0 BLACK COHOSH (CIMICIFUGA RACEM (BLACK COHOSH) 40 MG capsule 40 mg PO BID Qty: 0 CYCLOBENZAPRINE HCL (FLEXERIL) 5 MG tablet 5 mg PO HS Qty: 0 Patient Comments: PRN DULOXETINE HCL (CYMBALTA) 60 MG capsule 60 mg PO HS Qty: 0 Pantoprazole (Protonix) 40 MG tablet 40 mg PO DAILYBL Qty: 30 Aspirin (Aspirin EC Low Dose) 81 MG ENTERIC COATED TAB 81 mg PO BID 30 Days Qty: 60 0RF buspirone 5 mg Tablet 5 mg PO TID Acetaminophen (Tylenol Extra Strength) 500 MG tablet 1,000 mg PO Q8 PRN (Reason: Pain) folic acid 1 mg Tablet 1 mg PO QAM magnesium 250 mg Tablet 250 mg PO QAM hydroxychloroquine 200 mg Tablet 400 mg PO QAM omega 7-ink-sxp-fish oil 900-1,400 mg Capsule,Delayed Release(Dr/Ec) 1 cap PO HS Discontinued methotrexate sodium 2.5 mg Tablet 17.5 mg PO WK Rx Instructions: once weekly on mondays Discharge Orders: Discharge Order (Routine); Ordered 05/04/23 Ordered By: Franklin Sharpe Admission Data Admit Date/Time: 05/01/23 09:44 Attending Provider: Franklin Sharpe Admit Provider: Franklin Sharpe Primary Care Provider: Eyad Youssef Other Providers: Anthony Corrigan
[2023-05-04] MEDS: PANTOprazole 40 MG TAB PO SCH (10:31)
--- NOTE | 2023-05-04 17:23 | Hospitalist Progress Note ---
Date of Service May 04, 2023 Assessment & Plan (1) S/P spinal surgery: Plan: This is a 62-year-old female with PMH of rheumatoid arthritis, fibromyalgia, anxiety, GERD, HLD and other medical problems listed below who is POD#1 s/p lumbar decompression bilateral medial facetectomies and foraminotomies L3-L4, L4-5 and posterior spinal fusion L4-L5 by Dr. Sharpe. POD#3 s/p lumbar decompression bilateral medial facetectomies and foraminotomies L3-L4, L4-5 and posterior spinal fusion L4-L5 by Dr. Sharpe. Per ortho for pain control, wound care, anticoagulation and activities Monitor H&H (pre-op hgb 12, EBL: 100ml) Continue incentive spirometry, PT/OT when appropriate (2) Acute postoperative anemia due to expected blood loss: Plan: Preop hemoglobin 12, postop hemoglobin 10.2 Expected blood loss, likely dilutional component No indication for transfusion, monitor (3) Rheumatoid arthritis: Plan: Follows with rheumatology. Weekly methotrexate held, okay to continue daily Plaquenil (4) Fibromyalgia: Plan: Continue duloxetine (5) Hyperlipidemia: Plan: Fish oil held postoperatively. Not on a statin. (6) Prediabetes: Plan: A1c 6.1 in pre-op testing. Recommend dietary modifications and PCP follow up (7) Anxiety: Plan: Resumed home buspirone (8) GERD (gastroesophageal reflux disease): Plan: Continue PPI DVT Ppx: SCDs per primary Code status: FULL PCP: Domonique Davila) Dispo: Per primary service Thank you for this consultation. We will follow the patient with you during their hospital stay. You can reach a member of the [facility]ist Team 30/10 via [employer]. Admission and Anticipated Discharge Date Admission Date: May 01, 2023 Subjective Patient was seen and examined in room 318 Follow-up lumbar surgery. She is doing well postoperatively on day 3. She offers no acute concerns. She has some incisional tenderness but otherwise denies any radicular symptoms. She denies fever, chills, sweats, lightheadedness, dizziness, chest pain, shortness of breath, nausea, and abdominal pain. She is tolerating diet. no complaints. Physical Exam Physical Exam: Gen: WD/WN, NAD, A&O x3 HEENT: Normocephalic, atraumatic, conjunctivae moist, sclerae anicteric, mucous membranes moist. Lung: Clear to Auscultation bilaterally, no wheezes/rales/rhonchi Heart: Regular rate, regular rhythm, no murmurs, rubs, or gallops Abdomen: Soft, NT, ND +BS x 4 Extremities: No edema, lumbar dressing CDI, JONNY drain with serosanguineous drainage Skin: Warm, no rash, negative turgor. Results & Data Results & Data Vital Signs (Past 12 Hours) Vital Signs Temp Pulse Resp BP BP Pulse Ox O2 Del Method 05/04/23 10:39 36.8 C 79 18 144/86 H 123/80 95 05/04/23 07:19 36.8 C 79 18 144/86 H 95 Room Air
== END 2023-05-04 11:22 | disposition home or self-care (01) | DRG 454 ==
LOC: ASU 05:43 → 3E 09:44
DX: D62 Acute posthemorrhagic anemia; E66.9 Obesity, unspecified; E78.5 Hyperlipidemia, unspecified; M48.062 Spinal stenosis, lumbar region with neurogenic claudication; R73.03 Prediabetes; M79.7 Fibromyalgia; M19.90 Unspecified osteoarthritis, unspecified site; Z68.37 Body mass index [BMI] 37.0-37.9, adult; Z79.899 Other long term (current) drug therapy; M43.16 Spondylolisthesis, lumbar region; M06.9 Rheumatoid arthritis, unspecified; F41.9 Anxiety disorder, unspecified; Z79.82 Long term (current) use of aspirin; K21.9 Gastro-esophageal reflux disease without esophagitis